=== PATIENT | male | born 1955 | race Caucasian/White ===

== ENCOUNTER → 2017-01-24 | Outpatient (CLI) | payer BC ==
--- NOTE | 2017-01-24 15:43 | CT ---
EXAMINATION TYPE: CT ChestAbdPelvis w con DATE OF EXAM: 01/24/2017 3:24 PM COMPARISON: 08/15/2016 and 01/20/2014 HISTORY: 61-year-old male follow-up for esophageal cancer. Tumor removed at distal end of esophagus. TECHNIQUE: Contiguous axial scanning of the chest, abdomen, and pelvis performed with IV Contrast, pa tient injected with 100 mL of Omnipaque 300. Delayed images through the kidneys were obtained. Pike l/sagittal reconstructions performed. CT DLP: 1772 mGycm Automated exposure control for dose reduction was used. FINDINGS: CHEST: The heart is normal size with trace anterior pericardial fluid. Dense mitral annular calcifications a re present. Aorta is normal caliber with conventional arch vessel branching anatomy. No thoracic lymphadenopathy by CT size criteria. There are postsurgical changes of esophagectomy and gastric pull-through. Some retained contrast is n oted within the gastric pull-through. Evaluation of the lungs shows mild diffuse bronchial wall thickening which could represent bronchitis or chronic asthma. No consolidation or pleural effusion. ABDOMEN: No focal liver lesion or biliary ductal dilatation. Portal venous system appears patent. Gallbladder, adrenal glands, right kidney, spleen, and pancreas show no gross abnormality. There is an exophytic 1.6 cm hypodense lesion from the anterior midpole left kidney that is slightly larger from 01/20/2014 but overall similar from 08/15/2016 suggestive of a cyst. Solitary mildly enlarged gastrohepatic ligament lymph node measuring 9 mm, axial image 50. Otherwise, no mesenteric or retroperitoneal lymphadenopathy seen. Tiny fatty umbilical hernia. No dilated small bowel, free fluid, or free air. Mild scattered stool. No pericolonic inflammatory change. Pelvis: Prostate gland mildly enlarged at 4.3 cm wide. Bladder is underdistended with circumferential wall th ickening, similar to 2013. This may relate to posttreatment change as prior CT history states bladder neoplasm. No abnormal fluid collection in the pelvis or pelvic lymphadenopathy seen. Bones: Degenerative changes at the pubic symphysis and mild degenerative changes at the hips. Some degenerat vitor changes at the left SI joint also noted as well as the lower lumbar spine. Endplate spondylosis l ower thoracic spine. No osseous destructive process. IMPRESSION: 1. STATUS POST ESOPHAGECTOMY WITH GASTRIC PULL-THROUGH. 2. THERE IS A SOLITARY MILDLY ENLARGED 9 MM GASTROHEPATIC LYMPH NODE IN THE UPPER ABDOMEN WHICH MAY B E POSTINFLAMMATORY AND CHRONIC. RECOMMEND SHORT INTERVAL FOLLOW-UP TO ENSURE STABILITY.
== END ==
LOC: RADCTMAIN 14:40
PROVIDERS: ATTEND Internal Medicine Hematology & Oncology
DX: C15.5 Malignant neoplasm of lower third of esophagus (principal); R59.9 Enlarged lymph nodes, unspecified; Z90.49 Acquired absence of other specified parts of digestive tract
CPT/HCPCS: 71260; 74177; Q9967

== ENCOUNTER → 2017-06-02 | Outpatient (CLI) | payer BC ==
--- NOTE | 2017-06-02 16:17 | CT ---
EXAMINATION TYPE: CT ChestAbdPelvis w con DATE OF EXAM: 06/02/2017 COMPARISON: 01/24/2017 and 09/10/2016 HISTORY: 62-year-old male f/u esophageal cancer. Observation for suspected metastases. TECHNIQUE: Contiguous axial scanning of the chest, abdomen, and pelvis performed with IV Contrast, pa tient injected with 100 mL of Omnipaque 300. Delayed images through the kidneys were obtained. Pike l/sagittal reconstructions performed. CT DLP: 1458.0 mGycm Automated exposure control for dose reduction was used. FINDINGS: CHEST: The heart is normal size without pericardial effusion. Dense mitral annular calcifications are presen t. Coronary vessel calcifications are present and are remarkable for coronary artery disease. Aorta is normal caliber with conventional arch vessel branching anatomy. Scattered nonenlarged mediastinal lymph nodes. No thoracic lymphadenopathy by CT size criteria. There are postsurgical changes of esophagectomy and gastric pull-through. Evaluation of the lungs shows no consolidation or pleural effusion. ABDOMEN: No focal liver lesion. No biliary ductal dilatation. Portal venous system is patent. Gallbladder, adrenal glands,, right kidney, spleen, and pancreas appear within normal limits. Stable 1.3 cm hypodensity lateral left kidney suggestive of a cyst. The previously seen mildly enlarged gastrohepatic ligament lymph node just above the celiac axis is n o longer identified. No mesenteric or retroperitoneal lymphadenopathy seen. Scattered small mesenteric lymph nodes are pre sent. Small fatty umbilical hernia. No dilated small bowel, free fluid, or free air. Normal appendix. Mild circumferential wall thickenin g at the hepatic flexure likely due to nondistention. No pericolonic inflammatory change or significa nt stool burden. Pelvis: Bladder partially urine distended. Prostate gland measures 4.3 cm wide. No abnormal fluid collection in the pelvis or pelvic lymphadenopathy. Bones: Degenerative changes at the pubic symphysis. Mild degenerative changes at both hips. Additional degen erative changes lower lumbar spine. Degenerative grade 1 retrolistheses at L1-L2, L2-L3, and L3-L4. N o osseous destructive process. IMPRESSION: 1. POSTSURGICAL CHANGES OF ESOPHAGECTOMY AND GASTRIC PULL-THROUGH. 2. THE PREVIOUS MILDLY ENLARGED GASTROHEPATIC LIGAMENT LYMPH NODE IS NO LONGER IDENTIFIED. NO SUSPICI OUS FINDINGS TO SUGGEST METASTATIC DISEASE.
== END | disposition home or self-care (01) ==
LOC: RADCTMAIN 13:51
PROVIDERS: ATTEND Internal Medicine Hematology & Oncology
DX: C15.5 Malignant neoplasm of lower third of esophagus (principal); Z98.890 Other specified postprocedural states
CPT/HCPCS: 71260; 74177; Q9967

== ENCOUNTER → 2018-02-05 | Outpatient (CLI) | payer BC ==
--- NOTE | 2018-02-05 09:33 | CT ---
EXAMINATION TYPE: CT ChestAbdPelvis w con DATE OF EXAM: 02/05/2018 COMPARISON: CT chest abdomen and pelvis September 29, 2017 and older studies. PET/CT June 25, 2016 and September 10, 2016. HISTORY: Esophageal and bladder CA CT DLP: 1640.6 mGycm. Automated Exposure Control for Dose Reduction was Utilized. CONTRAST: CT scan of the thorax, abdomen and pelvis is performed with IV Contrast, patient injected with 100 mL of Isovue 300. FINDINGS: LUNGS: The lungs are grossly clear, there is no concerning parenchymal mass or nodule identified. T here is no pleural effusion or pneumothorax seen. The tracheobronchial tree is patent. MEDIASTINUM: There are no greater than 1 cm hilar or mediastinal lymph nodes. There are stable promin ent but subcentimeter prevascular lymph nodes. No cardiomegaly or pericardial effusion is seen. Anjali gical changes from esophagectomy and gastric pull-through are redemonstrated. Coronary artery calcifi cation is redemonstrated. Prominent mitral annular calcifications are again seen. OTHER: Small collateral vessels in the left neck are redemonstrated. There is likely narrowing inferi or to left clavicle of the left subclavian vein. This is best seen in coronal image 44. 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 LIVER/GB: No significant abnormality is appreciated. PANCREAS: No significant abnormality is seen. SPLEEN: No significant abnormality is seen. ADRENALS: No significant abnormality is seen. KIDNEYS: There is redemonstration of 1.2 cm low dense lesion slightly exophytic from the anterolatera l aspect of the mid pole level left kidney axial image 32, favored benign, continued slight increase in size since November 21, 2011 is noted. Would still favor simple but enlarging cyst. Subcentimeter l ow dense lesion right kidney coronal image 72 mid pole level is too small to further characterize but stable and presumed benign. Visualized portion of the bladder shows no new intraluminal mass or wall thickening. BOWEL: Esophagectomy changes with gastric pull-through are redemonstrated. GENITAL ORGANS: Prostate gland is enlarged in size bulging on bladder base, underlying BPH is felt pr esent, correlate clinically. LYMPH NODES: No greater than 1cm abdominal or pelvic lymph nodes are appreciated. OSSEOUS STRUCTURES: There is joint space loss at pubic symphysis. There is mild to moderate multileve l spurring in the thoracolumbar spine. Some facet arthropathy lower lumbar levels is present. OTHER: No significant additional abnormality is seen. IMPRESSION: No new mass or adenopathy is seen to suggest neoplastic recurrence.
== END | disposition home or self-care (01) ==
LOC: RADCTMAIN 06:50
PROVIDERS: ATTEND Internal Medicine Hematology & Oncology
DX: C15.5 Malignant neoplasm of lower third of esophagus (principal)
CPT/HCPCS: 71260; 74177; Q9967

== ENCOUNTER 2018-02-22 09:00 | Day surgery (SDC) | payer BC ==
[2018-02-20 15:43] VITALS: BMI 31.3
[~2018-02-22 09:00] MED LIST: LACTATED RINGERS 1,000 ML IV SCH
[2018-02-22 10:52] VITALS: RESP 16; TEMP 98
[2018-02-22] MEDS ORDERED: LIDOCAINE 1% 20 ML VIAL (10MG/ML) FOR IV START INTRADERMA ONE (11:08)
[2018-02-22] MEDS ORDERED: MIDAZOLAM 2 MG/2 ML VIAL IV ONE (11:13)
[2018-02-22] MEDS ORDERED: PROPOFOL 10 MG/ML 20 ML VIAL IV ONE (11:20)
[2018-02-22] MEDS ORDERED: LIDOCAINE 1% INJ 10MG/ML (20 ML MDV) ONE (11:20)
--- NOTE | 2018-02-22 11:51 | P.PCN ---
Date of Procedure: 02/22/18 Procedure(s) Performed: Procedure: Esophagogastroduodenoscopy and biopsy. Preoperative diagnosis: History of esophageal cancer. Postoperative diagnosis: 1. S/P esophageal resection with gastric pull-through with no evidence of esophagitis of the gastric remnant or recurrent at the anastomosis or strictures. 2. Mild antral gastritis. 3. Biopsies obtained from the antrum. Preparation and sedation: Was provided by anesthesia. Brief clinical history: The patient is a 62-year-old male who was diagnosed in April 2016 with esophageal cancer. He underwent radiation and chemotherapy and that was followed by surgery. The patient is scheduled for this evaluation at this time to assess for any recurrence. The patient has no symptoms and is doing well. Procedure: With the patient on his left lateral decubitus position and after informed consent and adequate sedation, I passed the Olympus-GIF 160 video upper endoscope through the cricopharyngeus. The area of the anastomosis was noted at around 24 cm from the incisors and it appeared healthy with no evidence of recurrence. The esophageal remnant appeared healthy as well. There were no strictures. The endoscope was then passed into the stomach which was insufflated with air and inspected in detail including the retroflexed view. The was some mottling and erythema in the antrum but no ulcers or erosions. Pyloric channel, duodenal bulb, post bulbar area and descending duodenum appeared normal. I obtained biopsies from the antrum then the endoscope was withdrawn. The patient tolerated the procedure well. Plan: The patient was reassured. He will follow up with you as planned. Further plans based on his course.
[2018-02-22 11:59] VITALS: BP 91/50; PULSE 68
== END 2018-02-22 12:31 | disposition home or self-care (01) ==
LOC: ORWHC2ENDO 09:00
DX: K29.50 Unspecified chronic gastritis without bleeding (principal); Z90.49 Acquired absence of other specified parts of digestive tract; Z85.01 Personal history of malignant neoplasm of esophagus; Z92.3 Personal history of irradiation; Z92.21 Personal history of antineoplastic chemotherapy; K21.9 Gastro-esophageal reflux disease without esophagitis; I10 Essential (primary) hypertension; E78.5 Hyperlipidemia, unspecified; Z79.899 Other long term (current) drug therapy; M19.90 Unspecified osteoarthritis, unspecified site; Z85.51 Personal history of malignant neoplasm of bladder; Z96.652 Presence of left artificial knee joint
CPT/HCPCS: 88305; 43239; J2250; J2001; J2704

== ENCOUNTER → 2018-06-13 | Outpatient (CLI) | payer BC ==
--- NOTE | 2018-06-13 09:25 | CT ---
EXAMINATION TYPE: CT ChestAbdPelvis w con DATE OF EXAM: 06/13/2018 COMPARISON: 02/05/2018 HISTORY: Esophagus CA CT DLP: 1892 mGycm CONTRAST: CT scan of the chest, abdomen and pelvis is performed with Oral Contrast and with IV Contrast, patien t injected with 100 mL of Isovue 300. [address] Chest: LUNGS: The lungs are clear and free of infiltrate or atelectasis. No pulmonary nodule or mass is det ected. There is a new small left-sided pleural effusion. MEDIASTINUM: There is evidence of esophagectomy with gastric pull-through procedure. Soft tissue is noted posterior to the pull-through component and at its left lateral wall prespinal in location begi nning at approximately the level of the aortic arch. Craniocaudal measurement is 7.4 cm with the AP d imension of about 2.8 cm in transverse measurement of about 3.8 cm. Tumor recurrence or adenopathy is not excluded. Thoracic aorta is of normal caliber. The heart is not enlarged. HILAR STRUCTURES: No evidence for mass. No hilar adenopathy is appreciated. OTHER: No significant abnormality. CONTRAST CT ABDOMEN AND PELVIS FINDINGS: LIVER/GB: No calcified gallstones. No space occupying hepatic lesion. Biliary tree is of normal ca liber. PANCREAS: No inflammation. No distinct mass. SPLEEN: No splenic enlargement. No lesion seen. ADRENALS: No nodule. No thickening. KIDNEYS/BLADDER: No hydronephrosis. No nephrolithiasis. No distinct renal mass. BOWEL: Normal appendix. Normal bowel caliber. No inflammation. GENITAL ORGANS: Prostate gland enlargement identified. LYMPH NODES: No greater than 1cm abdominal or pelvic lymph nodes are appreciated. AORTA: No significant abnormality. OSSEOUS STRUCTURES: No significant abnormality is seen. OTHER: No significant additional abnormality is seen. IMPRESSION: 1. Soft tissue is noted posterior to the pull-through component and at its left lateral wall prespin al in location beginning at approximately at the level of the aortic arch. Craniocaudal measurement i s 7.4 cm with the AP dimension of about 2.8 cm in transverse measurement of about 3.8 cm. Tumor recur rence or adenopathy is not excluded.
== END | disposition home or self-care (01) ==
LOC: RADCTMAIN 07:15
PROVIDERS: ATTEND Internal Medicine Hematology & Oncology
DX: Z03.89 Encounter for observation for other suspected diseases and conditions ruled out (principal); C15.5 Malignant neoplasm of lower third of esophagus
CPT/HCPCS: 71260; 74177; 36415; Q9967

== ENCOUNTER → 2018-09-22 | Outpatient (CLI) | payer BC ==
--- NOTE | 2018-09-27 15:32 | PE ---
Nuclear medicine PET/CT HISTORY: Esophageal carcinoma, subsequent Patient received 13.2 mCi F-18 FDG intravenously in delayed scanning was performed from skull base to the mid thighs. Localization and attenuation correction CT scan was also performed. Correlation to prior nuclear medicine PET/CT 06/23/2018 FINDINGS: Neck and chest: There is no evident cervical adenopathy. Carotid artery calcifications are present. No supraclavicular adenopathy, no mediastinal, axillary, or hilar adenopathy. Small prevascu lar nodes are present. Patient is status post esophagectomy and gastric pull-through. Mild uptake in the stomach felt likely to be physiologic. No evident lung mass. Some pleural thickening at the left lung base is chronic. Left-sided Port-A-Cath is present with the distal tip of the catheter within th e superior vena cava. The previously identified posterior mediastinal soft tissue mass shows interval improvement, no suspicious hypermetabolic uptake Abdomen pelvis: No evident adenopathy. No evident liver mass. No suspicious hypermetabolic uptake. Osseous structures are unchanged. IMPRESSION: Resolution of abnormal uptake and improvement in the soft tissue density seen in the leve l of the previously identified ill-defined mass in the posterior mediastinum. No suspicious hypermeta bolic uptake.
== END | disposition home or self-care (01) ==
LOC: RADPETMAIN 11:14
PROVIDERS: ATTEND Internal Medicine Hematology & Oncology
DX: C15.5 Malignant neoplasm of lower third of esophagus (principal)
CPT/HCPCS: 78815; A9552

== ENCOUNTER → 2018-12-28 | Day surgery (SDC) | payer MEDICARE, BC ==
[2018-12-27 13:26] VITALS: BMI 31.9
[~2018-12-28] MED LIST changes: +IOPAMIDOL-250 50ML BTL IV ONE; -LACTATED RINGERS 1,000 ML IV SCH
[2018-12-28 13:52] VITALS: BP 112/71; PULSE 71; RESP 18; TEMP 98.2
--- NOTE | 2018-12-31 09:36 | IR ---
Port-A-Cath check HISTORY: Malfunctioning Port-A-Cath 0.5 minutes fluoroscopy time, 525 intraoperative images document the procedure, 8 cc Isovue-250. Real-time fluoroscopy is performed. Gentle hand injection of contrast material performed under real-t eve fluoroscopy. Port-A-Cath is intact. There is no extravasation or leak. Contrast material fills the catheter and po rt. Contrast courses through the catheter to the distal aspect which is enclosed present similarly to the lateral aspect of the superior vena cava. No evident fibrin sheath. Following the procedure the catheters flushed with heparin flush. Hemostasis achieved. No immediate complication. IMPRESSION: Patent Port-A-Cath.
== END ==
LOC: CATHCVL 13:11
PROVIDERS: ATTEND Radiology Diagnostic Radiology
DX: T82.598A Other mechanical complication of other cardiac and vascular devices and implants, initial encounter (principal); C15.5 Malignant neoplasm of lower third of esophagus; K21.9 Gastro-esophageal reflux disease without esophagitis; G89.3 Neoplasm related pain (acute) (chronic); R53.0 Neoplastic (malignant) related fatigue; R14.3 Flatulence; R11.2 Nausea with vomiting, unspecified; R04.0 Epistaxis; Z71.3 Dietary counseling and surveillance; Z87.891 Personal history of nicotine dependence; Z79.899 Other long term (current) drug therapy
CPT/HCPCS: 36598; J1642; Q9966

== ENCOUNTER → 2019-01-30 | Outpatient (CLI) | payer MEDICARE, BC ==
--- NOTE | 2019-01-30 12:38 | US ---
EXAMINATION TYPE: US venous doppler duplex UE LT DATE OF EXAM: 01/30/2019 COMPARISON: NONE CLINICAL HISTORY: M79.622 PAIN IN LT UPPER LIMB. Pain left arm. Hx cancer. Hx chemo and radiation. SIDE PERFORMED: Left Grayscale, color doppler, spectral doppler imaging performed of the deep veins of the left upper extr emity. There is normal flow, compressibility and vascular waveforms. Left Arm: No evidence of DVT in left upper extremity. IMPRESSION: No sonographic evidence of deep venous thrombosis within the left upper extremity.
== END | disposition home or self-care (01) ==
LOC: RADUSWWP 10:44
PROVIDERS: ATTEND Internal Medicine Hematology & Oncology
DX: M79.622 Pain in left upper arm (principal)

== ENCOUNTER 2019-02-01 09:25 | Day surgery (SDC) | payer MEDICARE, BC ==
[2019-01-31 11:33] VITALS: BMI 32.1
[2019-02-01 10:09] VITALS: BP 127/73; PULSE 70; TEMP 97.5
[2019-02-01] MEDS ORDERED: IOPAMIDOL-250 50ML BTL IV ONE (10:28)
--- NOTE | 2019-02-01 11:06 | IR ---
Fluoroscopic portogram([facility] port). HISTORY: Device malfunction. The patient presented to the [facility] with a Bruce needle within the port. Preliminary fluoroscopy demonst rated the catheter to be intact. 0.3 minutes fluoroscopy and T2 images submitted. IMPRESSION: 1. There is extravasation of contrast at the level of the subclavian vein. This could be due to the p oint of entry or possibly a fracture within the catheter. Correlate clinically. Surgical consultation suggested. Report called to the referring clinician.
== END 2019-02-01 10:49 | disposition home or self-care (01) ==
LOC: CATHCVL 09:25
PROVIDERS: ATTEND Radiology Diagnostic Radiology
DX: T82.514A Breakdown (mechanical) of infusion catheter, initial encounter (principal); C15.5 Malignant neoplasm of lower third of esophagus; G89.3 Neoplasm related pain (acute) (chronic); R53.0 Neoplastic (malignant) related fatigue; K21.9 Gastro-esophageal reflux disease without esophagitis; R14.3 Flatulence; Z87.891 Personal history of nicotine dependence; Z79.899 Other long term (current) drug therapy
CPT/HCPCS: 36598; Q9966

== ENCOUNTER 2019-02-07 06:51 | Day surgery (SDC) | payer MEDICARE, BC ==
[2019-02-06 09:03] VITALS: BMI 31.9
[2019-02-07] MEDS ORDERED: LIDOCAINE 1% INJ 10MG/ML (20 ML MDV) ONE (07:14)
[2019-02-07] MEDS ORDERED: SODIUM CHLORIDE 0.9% 500 ML 500 ML IV ONE (07:28)
[2019-02-07 07:29] VITALS: PULSE 68; RESP 20; TEMP 97.8
[2019-02-07] MEDS ORDERED: LIDOCAINE 1% INJ 10MG/ML (20 ML MDV) SQ ONE (07:48)
[2019-02-07 08:25] VITALS: BP 110/70
--- NOTE | 2019-02-07 15:45 | IR ---
PICC LINE PLACEMENT: HISTORY: Infection requiring long-term antibiotic therapy PROCEDURE: Ultrasound and fluoroscopic guidance of PICC line placement. COMPLICATIONS: None ANESTHESIA: 1. 1% Lidocaine locally. FINDINGS/TECHNIQUE: The procedure was explained to the patient. The risks, complications, benefits and alternatives were discussed and any questions were answered. Informed consent was obtained. The patient was placed supine on the fluoroscopic table and prepped and draped in the usual sterile fash ion. Utilizing a 21 gauge needle and sonographic and fluoroscopic guidance, access in the right bas ilic vein was achieved and there is placement of a 0.018 guidewire. The vein is patent. A 4-F sheat h was placed over the guidewire. The guidewire and dilator were removed and a 4-F. PICC line was richard jamison through the sheath with the tip at the level of the SVC. The sheath was removed, the catheter wa s flushed and sutured into position. The patient was stable throughout the procedure and remained st able upon discharge from the Department of Radiology. The vein puncture was patent under ultrasound. A batres scale image was obtained to document patency of the vein punctured. All elements of the maximal barrier technique were utilized. FLUOROSCOPY TIME: 0.1 minutes and one image submitted IMPRESSION: Successful PICC line placement under ultrasound and fluoroscopic guidance.
== END 2019-02-07 08:20 | disposition home or self-care (01) ==
LOC: CATHCVL 06:51
PROVIDERS: ATTEND Radiology Diagnostic Radiology
DX: Z45.2 Encounter for adjustment and management of vascular access device (principal); G89.3 Neoplasm related pain (acute) (chronic); C15.5 Malignant neoplasm of lower third of esophagus; C77.2 Secondary and unspecified malignant neoplasm of intra-abdominal lymph nodes; K21.9 Gastro-esophageal reflux disease without esophagitis; R53.0 Neoplastic (malignant) related fatigue; Z87.891 Personal history of nicotine dependence; Z79.899 Other long term (current) drug therapy; Z92.21 Personal history of antineoplastic chemotherapy; Z92.3 Personal history of irradiation
CPT/HCPCS: 36573; C1751; C1769; J2001

== ENCOUNTER → 2019-04-02 | Outpatient (CLI) | payer MEDICARE, BC ==
[2019-04-02 10:45] LABS: African American GFR (CKD) >90 (>60 ml/min/1.73 sqM); Blood Urea Nitrogen 10 mg/dL (9-20)
--- NOTE | 2019-04-02 12:44 | CT ---
EXAMINATION TYPE: CT ChestAbdPelvis w con DATE OF EXAM: 04/02/2019 COMPARISON: CT chest abdomen and pelvis June 13, 2018 and older CTs. PET/CT September 22, 2018 and ol aarti studies. HISTORY: Esophageal CA with suspected metastatic disease with history of bladder cancer completed omari motherapy [address] DLP: 1602 mGycm. Automated Exposure Control for Dose Reduction was Utilized. CONTRAST: CT scan of the thorax, abdomen and pelvis is performed with oral and with IV Contrast, patient inject ed with 100 mL of Isovue 300. FINDINGS: LUNGS: The lungs are grossly clear, there is no concerning parenchymal mass or nodule identified. T here is no pleural effusion or pneumothorax seen. The tracheobronchial tree is patent. MEDIASTINUM: There are no new greater than 1 cm hilar or mediastinal lymph nodes. No cardiomegaly o r pericardial effusion is seen. Calcification level mitral valve is redemonstrated. Surgical changes from esophagectomy and gastric pull up procedure are redemonstrated. There is stable abnormal soft ti ssue between the descending thoracic aorta and gastric pull-up subcarinal level axial image 25 near s urgical clips without obvious change from most recent CT and PET/CT axial image 83 for reference OTHER: No additional significant abnormality is seen. LIVER/GB: No significant abnormality is appreciated. PANCREAS: No significant abnormality is seen. SPLEEN: No significant abnormality is seen. ADRENALS: No significant abnormality is seen. KIDNEYS: No significant abnormality is seen. BOWEL: Oral contrast reaches level of cecum. No suspicious small or large bowel dilatation. GENITAL ORGANS: Enlarged prostate gland consistent with BPH is redemonstrated. LYMPH NODES: No greater than 1cm abdominal or pelvic lymph nodes are appreciated. OSSEOUS STRUCTURES: Multilevel facet arthropathy lower lumbar spine is present. Mild to moderate narr owing of both hip joints is seen. There is mild/moderate multilevel spurring in the thoracolumbar spi ne. OTHER: Mild to moderate calcified plaque of aorta extends into branch vessels. IMPRESSION: Stable soft tissue in the mediastinum subcarinal level between descending aorta and gastr ic pull-up. No new suspicious mass or adenopathy is present.
== END | disposition home or self-care (01) ==
LOC: RADCTMAIN 09:32
PROVIDERS: ATTEND Internal Medicine Hematology & Oncology
DX: C15.5 Malignant neoplasm of lower third of esophagus (principal)
CPT/HCPCS: 82565; 84520; 71260; 74177; 36415; Q9967